=== PATIENT | female | born 2000 | race Caucasian/White ===

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

== ENCOUNTER 2020-09-12 20:30 | Emergency (ER) | payer OTHER ==
[2020-09-12 20:44] VITALS: BMI 37.4
[2020-09-12 22:29] LABS: BASO % 0.5 % (0-2.0); EOS % 0.7 % (0-4.5); HEMATOCRIT 27.2 % (32.4-45.2); HEMOGLOBIN 8.9 GM/dL (10.7-15.3); LYMPH % 28.1 % (8-40); MCH 27.7 pg (25.7-33.7); MCHC 32.8 g/dl (32.0-36.0); MEAN CELL VOLUME 84.3 fl (80-96); MEAN PLT VOLUME 8.9 fl (7.5-11.1); MONO % 4.1 % (3.8-10.2); NEUT % 66.6 % (42.8-82.8); PLATELET COUNT 387 10^3/uL (134-434); RBC 3.23 M/mm3 (3.60-5.2); RDW 13.5 % (11.6-15.6); WHITE BLOOD COUNT 11.2 K/mm3 (4.0-10.0)
[2020-09-12 22:37] LABS: PROTHROMBIN TIME (PATIENT) 12.3 SEC (9.7-13.0)
[2020-09-12 22:40] LABS: ACTIVATED PTT 28.8 SECONDS (25.2-36.5)
[2020-09-13 01:44] LABS: EPI CELLS 17 /uL (0-25.1); HYALINE CASTS 31 /uL (0-3.1); URINE APPEARANCE TURBID; URINE BILIRUBIN 2+ (NEGATIVE); URINE COLOR RED; URINE GLUCOSE (UA) NEGATIVE (NEGATIVE); URINE KETONE NEGATIVE (NEGATIVE); URINE LEUK ESTERASE 2+ (NEGATIVE); URINE NITRITE POSITIVE (NEGATIVE); URINE PROTEIN 3+ (NEGATIVE); URINE RBC 15006 /uL (0-23.9); URINE UROBILINOGEN 0.2 mg/dL (0.2-1.0); URINE WBC 17 /uL (0-25.8)
[2020-09-13 01:48] VITALS: BP 126/77; PULSE 94; TEMP 99
[2020-09-13 04:31] LABS: URINE BACTERIA 25.8 /uL (0-1359)
== END 2020-09-13 03:12 | disposition home or self-care (01) ==
LOC: JER 20:30
DX: N93.8 Other specified abnormal uterine and vaginal bleeding (principal); D64.89 Other specified anemias
CPT/HCPCS: 36415; 76830-TC; 81003; 84703; 85025; 85610; 85730; 86850; 86900; 86901; 93005; 93010; 99285-25

== ENCOUNTER 2022-06-05 01:49 | Day surgery (SDC) | payer OTHER ==
[~2022-06-05 01:49] MED LIST: BUPIVACAINE HCL/PF 0.5% (5MG/ML) 10 ML VIAL NR ONE
[2022-06-05] MEDS ORDERED: ONDANSETRON 4 MG/2 ML VIAL IVPUSH ONE (04:11)
[2022-06-05] MEDS ORDERED: ACETAMINOPHEN 1000 MG/100 ML BAG IVPB ONE (04:11)
[2022-06-05] MEDS ORDERED: FAMOTIDINE 20 MG/50 ML IVPB 20 MG/50 ML MG IVPB ONE ×2 (04:11→04:57)
[2022-06-05] MEDS ORDERED: ACETAMINOPHEN INJECTION 100 ML IVPB ONE (04:18)
[2022-06-05] MEDS ORDERED: ONDANSETRON 4 MG/2 ML VIAL ONE ×2 (04:19→13:48)
[2022-06-05 05:16] LABS: BASO % 0.4 % (0-2.0); EOS % 0.1 % (0-4.5); HEMATOCRIT 35.9 % (32.4-45.2); HEMOGLOBIN 11.7 GM/dL (10.7-15.3); LYMPH % 10.2 % (8-40); MCH 25.7 pg (25.7-33.7); MCHC 32.6 g/dl (32.0-36.0); MEAN PLT VOLUME 9.8 fl (7.5-11.1); MONO % 2.4 % (3.8-10.2); NEUT % 86.9 % (42.8-82.8); PLATELET COUNT 290 10^3/uL (134-434); RBC 4.55 M/mm3 (3.60-5.2); RDW 15.9 % (11.6-15.6); WHITE BLOOD COUNT 13.3 K/mm3 (4.0-10.0)
[2022-06-05 05:34] LABS: CALCIUM 9.5 mg/dL (8.5-10.1)
[2022-06-05 05:35] LABS: ALBUMIN 3.3 g/dl (3.4-5.0)
[2022-06-05 05:38] LABS: CREATININE 0.7 mg/dL (0.55-1.3)
[2022-06-05 05:39] LABS: BILIRUBIN,TOTAL 0.1 mg/dL (0.2-1); TOT PROT 7.2 g/dl (6.4-8.2)
[2022-06-05] MEDS ORDERED: SUCRALFATE 1 GM TABLET (FP) PO ONE (07:26)
[2022-06-05] MEDS ORDERED: PANTOPRAZOLE SODIUM 40 MG VIAL IVPUSH ONE (07:26)
[2022-06-05] MEDS ORDERED: MAG HYDROX/AL HYDROX/SIMETH 30 ML UNIT-DOSE CUP PO ONE (07:27)
[2022-06-05] MEDS ORDERED: SUCRALFATE 1 GM TABLET (FP) ONE (07:29)
[2022-06-05] MEDS ORDERED: PANTOPRAZOLE SODIUM 40 MG VIAL ONE (07:29)
[2022-06-05] MEDS ORDERED: MAG HYDROX/AL HYDROX/SIMETH 30 ML UNIT-DOSE CUP ONE (07:29)
[2022-06-05 09:24] LABS: EPI CELLS >36 /uL (0-25.1); HYALINE CASTS 39 /uL (0-3.1); PH,URINE 7.5 (5.0-8.0); URINE APPEARANCE CLOUDY; URINE BACTERIA 671 /uL (0-1359); URINE BILIRUBIN NEGATIVE (NEGATIVE); URINE COLOR YELLOW; URINE GLUCOSE (UA) NEGATIVE (NEGATIVE); URINE KETONE NEGATIVE (NEGATIVE); URINE LEUK ESTERASE NEGATIVE (NEGATIVE); URINE NITRITE NEGATIVE (NEGATIVE); URINE PROTEIN 1+ (NEGATIVE); URINE UROBILINOGEN 0.2 mg/dL (0.2-1.0)
[2022-06-05] MEDS ORDERED: PIPERACILLIN/TAZOB 3.375 GM 0 GM/0 ML BAG IVPB ONE (11:36)
[2022-06-05] MEDS ORDERED: PIPERACILLIN/TAZOB 3.375 GM 3.375 GM/50 ML BAG IVPB ONE (11:39)
[2022-06-05 11:45] LABS: INR 1.1 (0.83-1.09); PROTHROMBIN TIME (PATIENT) 12.8 SEC (9.7-13.0)
[2022-06-05 11:48] LABS: ACTIVATED PTT 32.7 SECONDS (25.2-36.5)
[2022-06-05] MEDS ORDERED: PIPERACILLIN/TAZOB 3.375 GM 3.375 GM in DEXTROSE 5%-WATER - 50 ML IVPB ONE (11:49)
[2022-06-05] MEDS ORDERED: LACTATED RINGERS SOLUTION 1,000 ML/1,000 ML INFUS.BAG IV SCH (12:30)
[2022-06-05] MEDS ORDERED: BUPIVACAINE HCL/PF 0.5% (5MG/ML) 10 ML VIAL ONE (12:51)
[2022-06-05] MEDS ORDERED: SUCCINYLCHOLINE CHLORIDE 200 MG/10 ML SYRINGE ONE (13:16)
[2022-06-05] MEDS ORDERED: MIDAZOLAM HCL 2 MG/2 ML SINGLE DOSE VIAL ONE (13:16)
[2022-06-05] MEDS ORDERED: ROCURONIUM BROMIDE 50 MG/5 ML SYRINGE ONE (13:16)
[2022-06-05] MEDS ORDERED: PROPOFOL 20 ML ONE ×2 (13:16→14:47)
[2022-06-05] MEDS ORDERED: SEVOFLURANE 250 ML BTL ONE (13:17)
[2022-06-05] MEDS ORDERED: KETOROLAC TROMETHAMINE 30 MG/1 ML VIAL ONE (13:48)
[2022-06-05] MEDS ORDERED: DEXAMETHASONE SOD PHOSPHATE 4 MG/1 ML VIAL ONE (13:48)
[2022-06-05] MEDS ORDERED: SUGAMMADEX SODIUM 200 MG/2 ML VIAL ONE (14:11)
[2022-06-05] MEDS ORDERED: HYDROmorphone HCl 2 MG/ML VIAL ONE (14:43)
[2022-06-05] MEDS ORDERED: BUPIVACAINE HCL/PF 0.5% (5MG/ML) 10 ML VIAL NR ONE ×2 (14:43)
[2022-06-05 14:45] LABS: URINE RBC 71 /uL (0-23.9); URINE WBC 721.9 /uL (0-25.8)
[2022-06-05] MEDS ORDERED: oxyCODONE HCL 5 MG TABLET PO PRN (15:10)
[2022-06-05] MEDS ORDERED: ONDANSETRON 4 MG/2 ML VIAL IVPUSH PRN ×2 (15:10→15:39)
[2022-06-05] MEDS ORDERED: oxyCODONE HCL 5 MG TABLET ONE (19:30)
[2022-06-05] MEDS: oxyCODONE HCL 5 MG TABLET PO PRN (19:30)
[2022-06-05] MEDS: ACETAMINOPHEN 1000 MG/100 ML BAG IVPB SCH (22:58)
[2022-06-05] MEDS: KETOROLAC TROMETHAMINE 30 MG/1 ML VIAL IVPUSH SCH (23:05)
[2022-06-05 23:47] VITALS: RESP 20
[2022-06-06] MEDS: KETOROLAC TROMETHAMINE 30 MG/1 ML VIAL IVPUSH SCH (02:38)
[2022-06-06] MEDS: ACETAMINOPHEN 1000 MG/100 ML BAG IVPB SCH ×3 (04:08→16:51)
[2022-06-06] MEDS ORDERED: hydrOXYzine PAMOATE 50 MG CAPSULE (FP) PO PRN ×2 (07:17→07:35)
[2022-06-06 07:48] VITALS: BMI 31.7
[2022-06-06 09:48] LABS: BASO % 0.4 % (0-2.0); EOS % 0.1 % (0-4.5); HEMATOCRIT 32.8 % (32.4-45.2); HEMOGLOBIN 10.8 GM/dL (10.7-15.3); LYMPH % 20.7 % (8-40); MCH 25.7 pg (25.7-33.7); MCHC 32.8 g/dl (32.0-36.0); MEAN CELL VOLUME 78.5 fl (80-96); MEAN PLT VOLUME 9.5 fl (7.5-11.1); MONO % 4.2 % (3.8-10.2); NEUT % 74.6 % (42.8-82.8); PLATELET COUNT 247 10^3/uL (134-434); RBC 4.18 M/mm3 (3.60-5.2); RDW 15.7 % (11.6-15.6); WHITE BLOOD COUNT 14.8 K/mm3 (4.0-10.0)
[2022-06-06] MEDS ORDERED: DROSPIRENONE PO SCH (10:00)
[2022-06-06] MEDS ORDERED: ETHINYL ESTRADIOL PO SCH (10:00)
[2022-06-06] MEDS ORDERED: GABAPENTIN 300 MG CAPSULE PO SCH (10:00)
[2022-06-06] MEDS ORDERED: [UNRECOGNIZED DRUG - OTHER] PO SCH (10:00)
[2022-06-06 10:09] LABS: CALCIUM 8.8 mg/dL (8.5-10.1)
[2022-06-06 10:10] LABS: ALBUMIN 2.8 g/dl (3.4-5.0); BLOOD UREA NITROGEN 5.5 mg/dL (7-18)
[2022-06-06 10:13] LABS: CREATININE 0.6 mg/dL (0.55-1.3)
[2022-06-06 10:14] LABS: BILIRUBIN,TOTAL 0.6 mg/dL (0.2-1); TOT PROT 6.4 g/dl (6.4-8.2)
[2022-06-06] MEDS ORDERED: IBUPROFEN 600 MG TABLET (FP) PO PRN (10:41)
[2022-06-06] MEDS: oxyCODONE HCL 5 MG TABLET PO PRN (13:04)
[2022-06-06] MEDS ORDERED: ACETAMINOPHEN 500 MG TABLET (FP) PO PRN (16:15)
[2022-06-06 18:19] VITALS: BP 130/78; PULSE 115; TEMP 99
[2022-06-06] MEDS ORDERED: LURASIDONE HCL 20 MG TABLET PO SCH (22:00)
== END 2022-06-06 19:20 | disposition home or self-care (01) ==
LOC: JER 01:49 → SUATTDRO 11:09 → JASUSAT 11:09 → JERBED 20:26 → J8W 20:28 → JASUSAT 06-06 19:20
PROVIDERS: ATTEND Nurse Practitioner Family
PROC: 0FT44ZZ Resection of Gallbladder, Percutaneous Endoscopic Approach (ICD-10-PCS; principal; 2022-06-05 13:00)
DX: K80.00 Calculus of gallbladder with acute cholecystitis without obstruction (principal); K82.1 Hydrops of gallbladder
CPT/HCPCS: 36415; 74177-TC; 76705-TC; 80053; 81003; 83690; 84443; 84703; 85025; 85610; 85730; 86850; 86900; 86901; 87086; 88304-TC; 93005; 93010; 94010; 94760; 99285-25; C9803-CS; Q9967; U0003; U0005

== ENCOUNTER 2022-12-05 09:06 | Emergency (ER) | payer OTHER ==
[2022-12-05 09:27] VITALS: BP 124/63; PULSE 71; RESP 17; TEMP 98.4; BMI 32.5
[2022-12-05 11:44] LABS: EPI CELLS >36 /uL (0-25.1); HCG,QUALITATIVE URINE Negative; HYALINE CASTS 1 /uL (0-3.1); PH,URINE 6.5 (5.0-8.0); URINE APPEARANCE CLEAR; URINE BACTERIA 445 /uL (0-1359); URINE BILIRUBIN NEGATIVE (NEGATIVE); URINE COLOR YELLOW; URINE GLUCOSE (UA) NEGATIVE (NEGATIVE); URINE KETONE NEGATIVE (NEGATIVE); URINE LEUK ESTERASE 3+ (NEGATIVE); URINE NITRITE NEGATIVE (NEGATIVE); URINE PROTEIN NEGATIVE (NEGATIVE); URINE RBC 11 /uL (0-23.9); URINE UROBILINOGEN 0.2 mg/dL (0.2-1.0); URINE WBC 403 /uL (0-25.8)
[2022-12-05] MEDS ORDERED: DEXAMETHASONE SOD PHOSPHATE 10 MG/1 ML VIAL IM ONE (11:44)
[2022-12-05] MEDS ORDERED: KETOROLAC TROMETHAMINE 30 MG/1 ML VIAL IM ONE (11:44)
[2022-12-05] MEDS ORDERED: KETOROLAC TROMETHAMINE 30 MG/1 ML VIAL ONE (11:46)
[2022-12-05] MEDS ORDERED: DEXAMETHASONE SOD PHOSPHATE 10 MG/1 ML VIAL ONE (11:47)
[2022-12-05] MEDS ORDERED: LIDOCAINE 5% TOPICAL PATCH TP ONE (12:01)
[2022-12-05] MEDS ORDERED: diazePAM 5 MG TABLET PO ONE (12:01)
[2022-12-05] MEDS ORDERED: LIDOCAINE 5% TOPICAL PATCH ONE (12:09)
[2022-12-05] MEDS ORDERED: diazePAM 5 MG TABLET ONE (12:09)
== END 2022-12-05 13:52 | disposition home or self-care (01) ==
LOC: JER 09:06 → JERFT 09:06
PROC: 3E0233Z Introduction of Anti-inflammatory into Muscle, Percutaneous Approach (ICD-10-PCS; principal; 2022-12-05)
PROC: 3E023GC Introduction of Other Therapeutic Substance into Muscle, Percutaneous Approach (ICD-10-PCS; 2022-12-05)
DX: M54.50 Low back pain, unspecified (principal); X50.0XXA Overexertion from strenuous movement or load, initial encounter
CPT/HCPCS: 72131-TC; 81003; 84703; 87086; 99284-25; J1100